=== PATIENT | male | born 1950 | race Caucasian/White ===

== ENCOUNTER 2016-04-13 23:20 | Emergency (ER) | payer MEDICARE, OTHER ==
[2016-04-14] MEDS ORDERED: Meclizine HCl 25 MG TAB ONE (04:11)
== END 2016-04-14 05:29 | disposition home or self-care (01) ==
LOC: ER 23:20
DX: H81.10 Benign paroxysmal vertigo, unspecified ear (principal); I10 Essential (primary) hypertension
CPT/HCPCS: 36415; 80053; 85025; 93005; 96374